=== PATIENT | female | born 1995 | race Caucasian/White ===

== ENCOUNTER 2016-04-03 00:42 | Inpatient (IN) | payer OTHER ==
[~2016-04-03] VITALS: Ht 162.6 cm; Wt 90.0 kg
[2016-04-03] VITALS (17 sets, daily range): BP systolic 124–154; BP diastolic 72–99
[2016-04-03] MEDS ORDERED: OXYTOCIN 30 UNITS IN 0.9% NaCl 500ML IV BAG (J2590) As Ordered ONE (01:07)
[2016-04-03] MEDS ORDERED: LR 1,000 ML IV SCH (01:11)
[2016-04-03] MEDS ORDERED: PENICILLIN G POTASSIUM IV 5 MU in D5W MINI-BAG PLUS 100 ML IV STA (01:11)
[2016-04-03] MEDS ORDERED: OXYTOCIN DRIP 30 UNITS in APPROPRIATE DILUENT 1 EA IV SCH ×2 (01:15→10:09)
[2016-04-03] MEDS ORDERED: FENTANYL 2MCG/ML ROPIVACAINE 0.2% NACL 250 ML CADD As Ordered ONE (01:52)
[2016-04-03 01:55] LABS: MEAN CORPUSCULAR HEMOGLOBIN 33.3 pg (27.0-33.0); MEAN CORPUSCULAR VOLUME 97.9 fl (80.0-96.0); RED CELL DISTRIBUTION WIDTH 13.1 % (11.5-14.5); WHITE BLOOD COUNT 10.6 K/mm3 (4.0-10.0)
[2016-04-03] MEDS ORDERED: PENICILLIN G POTASSIUM IV 2.5 MU in D5W 100 ML IV SCH (05:30)
[2016-04-03 06:21] LABS: HBSAG L&D NEGATIVE (NEGATIVE)
[2016-04-03] MEDS ORDERED: MEASLES,MUMPS,RUBELLA VACCINE INJ (MMR-II) (90707) SC SCH (10:15)
[2016-04-03] MEDS ORDERED: ACETAMINOPHEN 500 MG TAB PO PRN (10:15)
[2016-04-03] MEDS ORDERED: RHOGAM 300 MCG (1500 IU) INJ (J2790) IM SCH (10:15)
--- NOTE | 2016-04-03 10:15 | DNPDOC ---
Delivery Note Delivery Note DATE OF DELIVERY: Apr 03, 2016 at 0938 PREDELIVERY DIAGNOSIS: 41 1/7 weeks' gestation and labor. POST DELIVERY DIAGNOSIS: Delivered. PROCEDURE: Spontaneous vaginal delivery SERGEANT AT ARMS: Dr. Alex Kincaid MD ANESTHESIA: epidural ESTIMATED BLOOD LOSS: 200 mL. FINDINGS: 7 pound 2 ounce male , Score 9/9, loose nuchal cord times 1. DELIVERY SUMMARY: Moriah is a 20yo G4 now P1031 who was admitted to L&D for latent labor. She had an uncomplicated of a viable male infant at 0938 on 03 Apr 2016 at 41w1d. Head delivered OA, restituted [place]. One very loose nuchal cord manually reduced. Right anterior shoulder delivered followed by posterior shoulder and corpus. Cord clamped x2 and cut by FOB. mouth/nares bulb suctioned. Spontaneous cry noted. Baby placed on mother's abdomen. Apgars 9/9, weight 3222g or 7lb2oz. Cord blood obtained due to maternal blood type of O pos. With gentle downward guidance and suprapubic pressure, placenta delivered spontaneously and intact. Fundal massage until both uterine fundus and lower uterine segment firm ; fundus at U-2cm. Pitocin 30 units IV bolus administered. Inspection of perineum and vaginal wall revealed superficial periurethral and hymenal lacerations closed with 3.0/4.0 vicryl suture with good hemostasis. Mom and in stable condition. ALEX KINCAID MD Apr 03, 2016 10:15
[2016-04-03] MEDS: PRENATAL VITAMIN TAB PO SCH (15:58)
[2016-04-03] MEDS: DOCUSATE SODIUM 100 MG CAP PO SCH ×2 (15:58→20:36)
[2016-04-03] MEDS: IBUPROFEN 800 MG TAB PO PRN (20:37)
[2016-04-04 06:48] VITALS: BP 142/76
--- NOTE | 2016-04-04 08:26 | IPNPDOC ---
Text Note Date of Service The patient was seen on 04/04/16. NOTE Moriah is a 20yo G4now P1031 doing well on PPD 1 s/p uncomplicated of viable male infant on 04/03. Tolerating regular diet, ambulating and voiding without problem. Breast feeding. Lochia minimal. Pain controlled. Vitals wnl, afebrile General: WDWN, resting comfortable Cardiac: S1S2 present, no murmur Lungs: CTAB, no w/c/r Abdomen: soft, non-tender to palpation, fundus firm at u-1cm Extremities: trace edema of BLE, no tenderness with palpation of calves Assessment: Moriah is a 20yo G4now P1031 doing well on PPD 1 s/p uncomplicated . Hemodynamically stable with no e/o infection. Plan: likely discharge to home tomorrow, routine care today, regular diet, encourage breast feeding, motrin/tylenol prn pain, desires mirena for contraception Dr. Alex Kincaid MD [facility] VS,[facility], I+O VS, [facility], I+O Vital Signs Date Time Temp Pulse Resp B/P Pulse Ox O2 Delivery O2 Flow Rate FiO2 04/04/16 06:48 97.2 82 18 142/76 I&O- Last 24 Hours up to 6 AM 04/04/16 06:00 Intake Total 2767 ml Output Total 1300 ml Balance 1467 ml ALEX KINCAID MD Apr 04, 2016 08:26
[2016-04-04] MEDS: DOCUSATE SODIUM 100 MG CAP PO SCH ×2 (10:19→20:50)
[2016-04-04] MEDS: PRENATAL VITAMIN TAB PO SCH (10:19)
--- NOTE | 2016-04-04 18:11 | IPN ---
DATE: 04/04/2016 This lady has requested circumcision of their male . After discussing risks and benefits of circumcision, medical and nonmedical indications, the penile block, and aftercare, they expressed understanding of penile block and aftercare and signed a witnessed consent form. We await the medical clearance by the rug cleaner hand.
[2016-04-04 18:17] VITALS: BP 141/92
[2016-04-04] MEDS: IBUPROFEN 800 MG TAB PO PRN (20:50)
[2016-04-05 05:20] VITALS: BP 118/66
[2016-04-05] MEDS ORDERED: PRENTAB9 PO (07:48)
[2016-04-05] MEDS ORDERED: IBUP-1114 PO (07:48)
[2016-04-05] MEDS ORDERED: COLA100C PO (07:48)
[2016-04-05] MEDS ORDERED: ACET50TA PO (07:48)
[2016-04-05] MEDS: IBUPROFEN 800 MG TAB PO PRN (09:16)
[2016-04-05] MEDS: DOCUSATE SODIUM 100 MG CAP PO SCH (09:33)
[2016-04-05] MEDS: PRENATAL VITAMIN TAB PO SCH (09:33)
--- NOTE | 2016-04-05 11:25 | DSES ---
DATE OF ADMISSION: 04/03/2016 DATE OF DISCHARGE: This lady is a 20-year-old, 4, admitted with uncomplicated past history, augmented with Pitocin, who had an uncomplicated delivery of a live male , 7 pounds 2 ounces, 3222 grams, of 9 and 9 at one and five minutes respectfully. She had an epidural in place. Small periurethral and vaginal tear, which was uncomplicated. She was admitted with a late term intrauterine , latent labor, delivered. She is to be given her medications on discharge. She will have a routine 6-week checkup. On the rest of the examination, she is normocephalic, atraumatic. Neck full range of motion. Pupils equal and reactive to light. Distal pulses are symmetric. No evidence of deep vein thrombosis (DVT), pulmonary embolism (PE) or superficial phlebitis. Chest is clear bilaterally to bases. The uterus is nontender, 2 below. Lochia is moderate. Perineum is healing. She has no rashes, lesions or pruritus. No arthralgia, myalgia. No complaints of cough, wheezes, shortness of breath or dyspnea on exertion. No chest pain. She is not bleeding. Neuro complete. No incontinency, urgency or frequency. No nausea, vomiting, diarrhea or constipation. No diabetic issues. No SIGNAL MAINTAINER, past medical or surgical history of consequence. No family history. She does not smoke or drink. She does not abuse drugs and she is . Her blood pressure today is 118/66, respirations are 18, pulse is 76 and temperature 97.3. Her hemoglobin was 12.8, hematocrit 37.8 and platelets are 183. In summary, we have a term gestation who delivered a live male infant, to be discharged and followup in six weeks' time. Medications will be given upon discharge. All questions were answered.
== END 2016-04-05 13:00 | disposition home or self-care (01) | DRG 775 ==
LOC: M LDO 00:42 → M LDI 01:09 → M OBS 12:25
PROVIDERS: ADMIT Obstetrics & Gynecology; ATTEND Obstetrics & Gynecology
PROC: 10E0XZZ Delivery of Products of Conception, External Approach (ICD-10-PCS; principal; 2016-04-03)
PROC: 0HQ9XZZ Repair Perineum Skin, External Approach (ICD-10-PCS; 2016-04-03)
DX: O48.0 Post-term pregnancy (principal); Z37.0 Single live birth; Z3A.41 41 weeks gestation of pregnancy; O70.0 First degree perineal laceration during delivery